=== PATIENT | female | born 1980 | race Caucasian/White ===

== ENCOUNTER 2023-11-26 10:13 | Emergency (ER) | payer BC ==
[~2023-11-26] VITALS: Ht 162.6 cm; Wt 90.7 kg
[2023-11-26 10:35] VITALS: BP 151/95; PULSE 75; RESP 16; TEMP 98.1; O2SAT 100
[2023-11-26 12:43] VITALS: BP 136/95; PULSE 75; RESP 16; TEMP 98.1; O2SAT 98
== END 2023-11-26 12:40 | disposition home or self-care (01) ==
LOC: ER 10:13
DX: S00.83XA Contusion of other part of head, initial encounter (principal); S50.01XA Contusion of right elbow, initial encounter; F41.8 Other specified anxiety disorders; W22.09XA Striking against other stationary object, initial encounter; Y93.89 Activity, other specified; Y92.098 Other place in other non-institutional residence as the place of occurrence of the external cause; Y99.8 Other external cause status
CPT/HCPCS: 70486; 99284; 73070-RT